=== PATIENT | female | born 1950 | race Asian ===

== ENCOUNTER 2019-06-17 15:28 | Emergency (ER) | payer MEDICARE, MEDICAID ==
[~2019-06-17] VITALS: Ht 149.9 cm; Wt 81.6 kg
[2019-06-17] MEDS ORDERED: IPRATRPIUM/ALBUTEROL 0.5/2.5MG 3 ML NEBU. NEB ONE (16:30)
[2019-06-17] MEDS ORDERED: predniSONE 20 MG TABLET PO ONE (16:30)
--- NOTE | 2019-06-17 16:58 | RAD ---
AP and Lateral Views of the Chest 06/17/2019 5:42 PM Indication: Cough Comparison: None Findings: There is no focal consolidation or infiltrate identified. The cardiomediastinal silhouette is within normal limits. There is no evidence of pneumothorax or pleural effusion. No acute osseous abnormalities are identified. Impression: No evidence of acute cardiopulmonary process. Electronically signed by: Tay Rain MD (06/17/2019 4:54 PM) [facility]
[2019-06-17 18:00] VITALS: BP 137/79
[2019-06-17] MEDS ORDERED: PRED50TA PO (18:03)
[2019-06-17] MEDS ORDERED: BENZ100C PO (18:03)
[2019-06-17] MEDS ORDERED: ALBU2.5V8 IH (18:03)
--- NOTE | 2019-06-17 18:03 | PHYS DOC ---
Past Medical History Past Medical History: Asthma, CVA, Hypertension Past Surgical History: Cholecystectomy Alcohol Use: None Drug Use: None Adult General Chief Complaint Chief Complaint: Congestion HPI HPI Patient is a 68 year old female with history of asthma not on any medications, hypertension, CVA, with no deficits presenting to the ED today complaining of cough and nasal congestion that began yesterday. Patient states symptoms are worse on laying down. Denies any fever. Review of Systems Review of Systems Constitutional: Denies fever or chills [] Eyes: Denies change in visual acuity, redness, or eye pain [] HENT: Reports nasal congestion, deny sore throat [] Respiratory: Reports cough, denies shortness of breath [] Cardiovascular: No additional information not addressed in HPI [] GI: Denies abdominal pain, nausea, vomiting, bloody stools or diarrhea [] : Denies dysuria or hematuria [] Musculoskeletal: Denies back pain or joint pain [] Integument: Denies rash or skin lesions [] Neurologic: Denies headache, focal weakness or sensory changes [] All other systems were reviewed and found to be within normal limits, except as documented in this note. Current Medications Current Medications Current Medications Medications (Trade) Dose Ordered Sig/Fernando Start Time Stop Time Status Last Admin Dose Admin Albuterol/ Ipratropium (Duoneb) 3 ml 1X ONCE 06/17/19 16:30 06/17/19 16:31 DC 06/17/19 16:18 3 ML Prednisone (Prednisone) 60 mg 1X ONCE 06/17/19 16:30 06/17/19 16:31 DC 06/17/19 16:27 60 MG Allergies Allergies Allergies Coded Allergies Type Severity Reaction Last Updated Verified No Known Drug Allergies 06/17/19 No Physical Exam Physical Exam Constitutional: Well developed, well nourished, no acute distress, non-toxic appearance. [] HENT: Normocephalic, atraumatic, bilateral external ears normal, oropharynx moist, no oral exudates, patient is nasally congested. Eyes: PERRLA, EOMI, conjunctiva normal, no discharge. [] Neck: Normal range of motion, no tenderness, supple, no stridor. [] Cardiovascular:Heart rate regular rhythm, no murmur [] Lungs & Thorax: Scattered wheezing throughout posterior and anterior lung bases. Abdomen: Bowel sounds normal, soft, no tenderness, no masses, no pulsatile masses. [] Skin: Warm, dry, no erythema, no rash. [] Back: No tenderness, no CVA tenderness. [] Extremities: No tenderness, no cyanosis, no clubbing, ROM intact, no edema. [] Neurologic: Alert and oriented X 3, normal motor function, normal sensory function, no focal deficits noted. [] Psychologic: Affect normal, judgement normal, mood normal. [] Current Patient Data Vital Signs Vital Signs Date Time Temp Pulse Resp B/P (MAP) Pulse Ox O2 Delivery O2 Flow Rate FiO2 06/17/19 16:20 96 Room Air 06/17/19 15:51 98.2 85 22 134/66 (88) 98.2 EKG EKG [] Radiology/Procedures Radiology/Procedures []REASON: cough PROCEDURE: CHEST PA & LATERAL AP and Lateral Views of the Chest 06/17/2019 5:42 PM Indication: Cough Comparison: None Findings: There is no focal consolidation or infiltrate identified. The cardiomediastinal silhouette is within normal limits. There is no evidence of pneumothorax or pleural effusion. No acute osseous abnormalities are identified. Impression: No evidence of acute cardiopulmonary process. Electronically signed by: Tay Lees MD (06/17/2019 4:54 PM) [facility] DICTATED and SIGNED BY: TAY LEES MD DATE: 06/17/19 165 Course & Med Decision Making Course & Med Decision Making Pertinent Labs and Imaging studies reviewed. (See chart for details) This is a 68-year-old female patient presenting to the ED today with cough and nasal congestion that began 2 days ago chest x-ray interpreted by radiologist is negative for any acute findings. Patient was wheezing on arrival to the ED. She has history of asthma and is not on any medications. We did give a DuoNeb treatment and prednisone. Lungs are cleared up, coughing has slowed down. She is discharged to home. Follow-up with PCP in 1-2 weeks. Prescription for asthma exacerbation medications provided Dragon Disclaimer Dragon Disclaimer This electronic medical record was generated, in whole or in part, using a voice recognition dictation system. Departure Departure Impression: Primary Impression: Asthma exacerbation Additional Impression: Upper respiratory infection Disposition: HOME, SELF-CARE Condition: STABLE Referrals: UNKNOWN PCP NAME (PCP) follow up with your doctor next week Patient Instructions: Asthma, Adult, [id number], Upper Respiratory Infection, Adult, [id number] Additional Instructions: You were evaluated in the emergency room with symptoms of an upper respiratory and asthma exacerbation. Use the prescribed medications as ordered. Follow up with the primary care doctor in the course of this week or next week. Scripts Benzonatate (TESSALON PERLE) 100 Mg Capsule 1 CAP PO TID, #30 CAP Prov: DON HANCOCK APRN 06/17/19 Albuterol Sulfate (Proair Hfa) 8.5 Gm Hfa.aer.ad 2 PUFF IH PRN Q4-6HRS PRN for wheezing for 21 Days, #1 INHALER 0 Refills Prov: DON HANCOCK APRN 06/17/19 Prednisone (PREDNISONE) 50 Mg Tablet 1 TAB PO DAILY, #5 TAB Prov: DON HANCOCK APRN 06/17/19 Problem Qualifiers Primary Impression: Asthma exacerbation Asthma severity: mild Asthma persistence: intermittent Qualified Codes: J45.21 - Mild intermittent asthma with (acute) exacerbation Additional Impression: Upper respiratory infection URI type: unspecified URI Qualified Codes: J06.9 - Acute upper respiratory infection, unspecified DON HANCOCK APRN Jun 17, 2019 18:03
== END 2019-06-17 18:13 | disposition home or self-care (01) ==
LOC: ER 15:28
DX: J45.21 Mild intermittent asthma with (acute) exacerbation (principal); J06.9 Acute upper respiratory infection, unspecified; I10 Essential (primary) hypertension; Z86.73 Personal history of transient ischemic attack (TIA), and cerebral infarction without residual deficits
CPT/HCPCS: 71046; 94640; 99284; J7512; J7620